=== PATIENT | male | born 1935 | race Caucasian/White ===

== ENCOUNTER 2021-01-14 14:04 | Inpatient (IN) | payer MEDICARE, OTHER ==
[2021-01-14 14:57] LABS: #Lymphocytes 0.8 thou/uL (1.20-3.40); #Monocytes 0.9 thou/uL (0.11-0.59); #Neutrophils 8.8 thou/uL (1.40-6.50); %Basophils 0.1 % (0.0-1.0); %Eosinophils 0.4 % (0.0-10.0); %Lymphocytes 7.1 % (21.0-51.0); %Monocytes 8.3 % (0.0-10.0); %Neutrophils 84.1 % (42.0-75.0); Hemoglobin 14.6 g/dL (14.0-18.0); Mean Corpuscular HGB CONC 31.4 g/dL (32.0-36.0); Mean Corpuscular Hemoglobin 31.5 pg (27.0-31.0); Mean Platelet Volume 8.4 fL (7.4-10.4); Platelet Count 256 thou/uL (130-400); RBC Distribution Width 16.3 % (11.5-14.5); Red Blood Cell (RBC) Count 4.63 mill/uL (4.70-6.10); White Blood Cell (WBC) Count 10.5 thou/uL (4.8-10.8)
[2021-01-14 15:11] LABS: ALT (SGPT) 10 U/L (8-55); AST (SGOT) 21 U/L (5-34); Albumin 3.4 g/dL (3.4-4.8); Alkaline Phosphatase 109 U/L (40-110); Anion Gap 11 mmol/L (10-20); BUN (Urea Nitrogen) 29 mg/dL (8.4-25.7); Bilirubin, Total 1.9 mg/dL (0.2-1.2); CK (CPK) 17 U/L (30-200); Calc. Creatinine Clearance 0 mL/min (70-130); Calcium 9.6 mg/dL (7.8-10.44); Carbon Dioxide 26 mmol/L (23-31); Chloride 102 mmol/L (98-107); Glucose 126 mg/dL (83-110); Lipase 15 U/L (8-78); Potassium 4.3 mmol/L (3.5-5.1); Protein, Total 6.4 g/dL (5.8-8.1); Sodium 135 mmol/L (136-145)
[2021-01-14] MEDS ORDERED: Furosemide 40 MG/4 ML VIAL ONE (17:02)
[2021-01-14] MEDS ORDERED: cefTRIAXone\\ROCEPHIN 1 GM VIAL ONE (17:02)
[2021-01-14] MEDS ORDERED: HYDROcodone/Acetaminophen 5/325 mg Tablet PO PRN (17:25)
[2021-01-14] MEDS ORDERED: Senokot S 8.6-50 MG TAB PO PRN (17:25)
[2021-01-14] MEDS ORDERED: Acetaminophen 325 MG TAB PO PRN (17:25)
[2021-01-14] MEDS ORDERED: Zolpidem Tartrate 5 MG TAB PO PRN (17:25)
[2021-01-14] MEDS ORDERED: Loperamide HCl 2 MG CAP PO PRN (17:25)
[2021-01-14] MEDS ORDERED: Calcium Carbonate 500 MG ChewTAB PO PRN (17:25)
[2021-01-14] MEDS ORDERED: Ondansetron ODT 4 MG TAB PO PRN (17:25)
[2021-01-14] MEDS ORDERED: Ondansetron PF 4 MG/2 ML Vial IVP PRN (17:25)
[2021-01-14] MEDS ORDERED: Bisacodyl 10 MG SUPP PR PRN (17:25)
[2021-01-14] MEDS ORDERED: Guaifenesin DM 100-10/5 ML UDCUP PO PRN (17:25)
[2021-01-14] MEDS: Budesonide 0.5 MG/2 ML NEB NEB SCH (19:45)
[2021-01-14] MEDS ORDERED: Budesonide 0.5 MG/2 ML NEB ONE (19:51)
[2021-01-14] MEDS: guaiFENesin ER 600 MG TAB PO SCH (21:31)
[2021-01-14] MEDS: Simvastatin 10 MG TAB PO SCH (21:31)
[2021-01-14] MEDS: Apixaban 2.5 MG TAB PO SCH (21:31)
[2021-01-14] MEDS ORDERED: Famotidine 20 MG TAB ONE (21:32)
[2021-01-14] MEDS ORDERED: methylPREDNISolone Sod Succ 40 MG VIAL ONE (22:20)
[2021-01-14] MEDS: Famotidine 20 MG TAB PO SCH (22:35)
[2021-01-14] MEDS: methylPREDNISolone Sod Succ 40 MG VIAL IVP SCH (22:35)
[2021-01-15 04:52] LABS: Bacteria/HPF None Seen HPF (None Seen); Bilirubin Negative (Negative); Blood, Urine Trace (Negative); Clarity Clear (Clear); Glucose, Urine (Dipstick) Normal (Negative); Ketone, Urine Negative (Negative); Leukocyte Negative Leu/uL (Negative); Nitrite Negative (Negative); Protein, Urine (Dipstick) Negative (Neg-Trace); RBC/HPF 0-3 HPF (0-3); Squamous Epithelial None Seen HPF (0-3); Urobilinogen Normal mg/dL (Less than 2); WBC/HPF 0-3 HPF (0-3)
[2021-01-15 05:01] LABS: #Basophils 0.1 thou/uL (0.0-0.2); #Lymphocytes 0.3 thou/uL (1.20-3.40); #Monocytes 0.3 thou/uL (0.11-0.59); #Neutrophils 9.3 thou/uL (1.40-6.50); %Basophils 0.8 % (0.0-1.0); %Eosinophils 0.3 % (0.0-10.0); %Lymphocytes 2.5 % (21.0-51.0); %Monocytes 2.8 % (0.0-10.0); %Neutrophils 93.6 % (42.0-75.0); Hemoglobin 13.1 g/dL (14.0-18.0); Mean Corpuscular Hemoglobin 30.9 pg (27.0-31.0); Mean Corpuscular Volume 99.6 fL (78.0-98.0); Mean Platelet Volume 8.8 fL (7.4-10.4); Platelet Count 238 thou/uL (130-400); RBC Distribution Width 16.2 % (11.5-14.5); Red Blood Cell (RBC) Count 4.24 mill/uL (4.70-6.10)
[2021-01-15 05:21] LABS: ALT (SGPT) 10 U/L (8-55); AST (SGOT) 18 U/L (5-34); Alkaline Phosphatase 94 U/L (40-110); Anion Gap 15 mmol/L (10-20); BUN (Urea Nitrogen) 27 mg/dL (8.4-25.7); Bilirubin, Total 1.3 mg/dL (0.2-1.2); Calc. Creatinine Clearance 0 mL/min (70-130); Calcium 9.4 mg/dL (7.8-10.44); Carbon Dioxide 20 mmol/L (23-31); Chloride 104 mmol/L (98-107); Globulin 2.9 g/dL (2.4-3.5); Glucose 114 mg/dL (83-110); Magnesium 1.9 mg/dL (1.6-2.6); Potassium 3.9 mmol/L (3.5-5.1); Protein, Total 5.9 g/dL (5.8-8.1); Sodium 135 mmol/L (136-145); Uric Acid 6.1 mg/dL (3.5-7.2)
[2021-01-15] MEDS ORDERED: methylPREDNISolone Sod Succ 40 MG VIAL ONE (05:27)
[2021-01-15] MEDS ORDERED: Furosemide 40 MG/4 ML VIAL ONE (05:27)
[2021-01-15] MEDS: Furosemide 40 MG/4 ML VIAL SLOW IVP SCH ×2 (05:36→16:35)
[2021-01-15] MEDS: methylPREDNISolone Sod Succ 40 MG VIAL IVP SCH ×3 (05:36→21:11)
[2021-01-15] MEDS ORDERED: Ipratropium Bromide 2.5 ml Neb ONE (08:15)
[2021-01-15] MEDS ORDERED: Budesonide 0.5 MG/2 ML NEB ONE (08:15)
[2021-01-15] MEDS ORDERED: Aspirin Chewable 81 MG TAB ONE (08:51)
[2021-01-15] MEDS ORDERED: Amiodarone 200 MG TAB PO SCH (09:00)
[2021-01-15] MEDS ORDERED: Folic Acid 1 MG TAB ONE (09:35)
[2021-01-15] MEDS: Potassium Chloride 10 MEQ TAB PO SCH ×2 (09:38→16:36)
[2021-01-15] MEDS: Aspirin Chewable 81 MG TAB PO SCH (09:39)
[2021-01-15] MEDS: Apixaban 2.5 MG TAB PO SCH ×2 (09:39→21:10)
[2021-01-15] MEDS: Cyanocobalamin (Vitamin B-12) 1,000 MCG TAB PO SCH (09:40)
[2021-01-15] MEDS: Folic Acid 1 MG TAB PO SCH (09:40)
[2021-01-15] MEDS: guaiFENesin ER 600 MG TAB PO SCH ×2 (09:40→21:10)
[2021-01-15] MEDS: Budesonide 0.5 MG/2 ML NEB NEB SCH ×2 (11:06→19:07)
[2021-01-15] MEDS ORDERED: PROPOFOL 200 MG/20 ML VIAL ONE (12:39)
[2021-01-15] MEDS ORDERED: Lidocaine 1% PF 5 ML VIAL ONE (12:39)
[2021-01-15] MEDS: cefTRIAXone\\ROCEPHIN 1 GM in Sodium Chloride 0.9% 100 ML IVPB SCH (16:36)
[2021-01-15] MEDS: Simvastatin 10 MG TAB PO SCH (21:10)
[2021-01-15] MEDS: Famotidine 20 MG TAB PO SCH (21:10)
[2021-01-16] MEDS: methylPREDNISolone Sod Succ 40 MG VIAL IVP SCH (06:01)
[2021-01-16] MEDS: Furosemide 40 MG/4 ML VIAL SLOW IVP SCH ×2 (06:04→15:40)
[2021-01-16] MEDS: Budesonide 0.5 MG/2 ML NEB NEB SCH ×2 (07:44→18:59)
[2021-01-16 08:45] LABS: Troponin I Less than 0.010 ng/mL (< 0.028)
[2021-01-16] MEDS: Apixaban 2.5 MG TAB PO SCH ×2 (09:16→20:41)
[2021-01-16] MEDS: Cyanocobalamin (Vitamin B-12) 1,000 MCG TAB PO SCH (09:16)
[2021-01-16] MEDS: Potassium Chloride 10 MEQ TAB PO SCH ×2 (09:16→18:11)
[2021-01-16] MEDS: Amiodarone 200 MG TAB PO SCH ×2 (09:16→20:41)
[2021-01-16] MEDS: Folic Acid 1 MG TAB PO SCH (09:17)
[2021-01-16] MEDS: Aspirin Chewable 81 MG TAB PO SCH (09:17)
[2021-01-16] MEDS: guaiFENesin ER 600 MG TAB PO SCH ×2 (09:17→20:41)
[2021-01-16] MEDS: cefTRIAXone\\ROCEPHIN 1 GM in Sodium Chloride 0.9% 100 ML IVPB SCH (18:11)
[2021-01-16] MEDS: Simvastatin 10 MG TAB PO SCH (20:41)
[2021-01-16] MEDS: Famotidine 20 MG TAB PO SCH (20:41)
[2021-01-17 05:46] LABS: Anion Gap 14 mmol/L (10-20); BUN (Urea Nitrogen) 25 mg/dL (8.4-25.7); Calc. Creatinine Clearance 48 mL/min (70-130); Calcium 9.5 mg/dL (7.8-10.44); Carbon Dioxide 28 mmol/L (23-31); Chloride 101 mmol/L (98-107); Glucose 113 mg/dL (83-110); Potassium 3.7 mmol/L (3.5-5.1); Sodium 139 mmol/L (136-145)
[2021-01-17] MEDS: Furosemide 40 MG/4 ML VIAL SLOW IVP SCH (05:48)
[2021-01-17] MEDS: Budesonide 0.5 MG/2 ML NEB NEB SCH ×2 (07:28→18:36)
[2021-01-17] MEDS: Apixaban 2.5 MG TAB PO SCH ×2 (09:41→20:17)
[2021-01-17] MEDS: Amiodarone 200 MG TAB PO SCH ×2 (09:41→20:17)
[2021-01-17] MEDS: Aspirin Chewable 81 MG TAB PO SCH (09:41)
[2021-01-17] MEDS: Potassium Chloride 10 MEQ TAB PO SCH ×2 (09:41→16:46)
[2021-01-17] MEDS: Folic Acid 1 MG TAB PO SCH (09:41)
[2021-01-17] MEDS: Cyanocobalamin (Vitamin B-12) 1,000 MCG TAB PO SCH (09:41)
[2021-01-17] MEDS: guaiFENesin ER 600 MG TAB PO SCH ×2 (09:41→20:18)
[2021-01-17] MEDS: cefTRIAXone\\ROCEPHIN 1 GM in Sodium Chloride 0.9% 100 ML IVPB SCH (16:45)
[2021-01-17] MEDS: Famotidine 20 MG TAB PO SCH (20:17)
[2021-01-17] MEDS: Simvastatin 10 MG TAB PO SCH (20:18)
[2021-01-18 04:24] LABS: #Eosinphils 0.3 thou/uL (0.0-0.7); #Lymphocytes 0.5 thou/uL (1.20-3.40); #Monocytes 0.4 thou/uL (0.11-0.59); %Basophils 0.2 % (0.0-1.0); %Eosinophils 2.8 % (0.0-10.0); %Monocytes 4.1 % (0.0-10.0); %Neutrophils 87.8 % (42.0-75.0); Hemoglobin 13.6 g/dL (14.0-18.0); Mean Corpuscular HGB CONC 32.7 g/dL (32.0-36.0); Mean Corpuscular Hemoglobin 32.7 pg (27.0-31.0); Mean Platelet Volume 8.4 fL (7.4-10.4); Platelet Count 178 thou/uL (130-400); RBC Distribution Width 16.2 % (11.5-14.5); Red Blood Cell (RBC) Count 4.17 mill/uL (4.70-6.10); White Blood Cell (WBC) Count 9.1 thou/uL (4.8-10.8)
[2021-01-18 04:48] LABS: Anion Gap 11 mmol/L (10-20); BUN (Urea Nitrogen) 25 mg/dL (8.4-25.7); Calc. Creatinine Clearance 51 mL/min (70-130); Calcium 8.9 mg/dL (7.8-10.44); Carbon Dioxide 28 mmol/L (23-31); Chloride 102 mmol/L (98-107); Glucose 92 mg/dL (83-110); Magnesium 1.8 mg/dL (1.6-2.6); Potassium 3.4 mmol/L (3.5-5.1); Sodium 138 mmol/L (136-145)
[2021-01-18] MEDS: Budesonide 0.5 MG/2 ML NEB NEB SCH ×2 (07:23→19:02)
[2021-01-18] MEDS ORDERED: Cefdinir 300 MG CAP PO SCH (09:00)
[2021-01-18] MEDS ORDERED: Furosemide 40 MG/4 ML VIAL SLOW IVP SCH ×2 (09:00→11:45)
[2021-01-18] MEDS: Amiodarone 200 MG TAB PO SCH ×2 (09:36→20:23)
[2021-01-18] MEDS: Apixaban 2.5 MG TAB PO SCH ×2 (09:36→20:23)
[2021-01-18] MEDS: guaiFENesin ER 600 MG TAB PO SCH ×2 (09:37→20:23)
[2021-01-18] MEDS: Multivit, Therapeutic 1 TAB PO SCH (09:37)
[2021-01-18] MEDS: Aspirin Chewable 81 MG TAB PO SCH (09:37)
[2021-01-18] MEDS: Folic Acid 1 MG TAB PO SCH (09:37)
[2021-01-18] MEDS: Cyanocobalamin (Vitamin B-12) 1,000 MCG TAB PO SCH (09:37)
[2021-01-18] MEDS ORDERED: Potassium Chloride 20 MEQ TAB PO SCH (12:00)
[2021-01-18] MEDS: Potassium Chloride 10 MEQ TAB PO SCH ×2 (12:27→16:28)
[2021-01-18] MEDS ORDERED: PHOS-NAK 1 PKT PACK PO SCH (13:30)
[2021-01-18] MEDS: K-Phos Neutral 250 MG TAB PO SCH (16:28)
[2021-01-18] MEDS: Famotidine 20 MG TAB PO SCH (20:23)
[2021-01-18] MEDS: Simvastatin 10 MG TAB PO SCH (20:24)
[2021-01-19 05:14] LABS: Anion Gap 11 mmol/L (10-20); BUN (Urea Nitrogen) 25 mg/dL (8.4-25.7); Calc. Creatinine Clearance 57 mL/min (70-130); Calcium 8.8 mg/dL (7.8-10.44); Carbon Dioxide 29 mmol/L (23-31); Chloride 102 mmol/L (98-107); Glucose 89 mg/dL (83-110); Magnesium 1.7 mg/dL (1.6-2.6); Potassium 3.9 mmol/L (3.5-5.1); Sodium 138 mmol/L (136-145)
[2021-01-19 05:31] LABS: Phosphorus 1.7 mg/dL (2.3-4.7)
[2021-01-19] MEDS ORDERED: Electrolyte Replacement Protocol 1 EACH FS PRN (06:44)
[2021-01-19] MEDS ORDERED: Potassium Chloride 20 MEQ TAB PO SCH (06:45)
[2021-01-19] MEDS: Budesonide 0.5 MG/2 ML NEB NEB SCH ×2 (06:58→18:51)
[2021-01-19] MEDS ORDERED: Magnesium Sulfate 3 GM in Sodium Chloride 0.9% 100 ML IVPB SCH (07:30)
[2021-01-19] MEDS ORDERED: Magnesium Sulfate 4 GM in Sodium Chloride 0.9% 250 ML 250 ML IVPB SCH (08:00)
[2021-01-19] MEDS: PHOS-NAK 1 PKT PACK PO SCH ×2 (09:30→12:00)
[2021-01-19] MEDS: K-Phos Neutral 250 MG TAB PO SCH ×3 (09:32→16:45)
[2021-01-19] MEDS: Apixaban 2.5 MG TAB PO SCH ×2 (09:33→21:56)
[2021-01-19] MEDS: Aspirin Chewable 81 MG TAB PO SCH (09:33)
[2021-01-19] MEDS: Potassium Chloride 10 MEQ TAB PO SCH ×2 (09:33→16:45)
[2021-01-19] MEDS: Cyanocobalamin (Vitamin B-12) 1,000 MCG TAB PO SCH (09:33)
[2021-01-19] MEDS: Amiodarone 200 MG TAB PO SCH ×2 (09:33→21:56)
[2021-01-19] MEDS: Multivit, Therapeutic 1 TAB PO SCH (09:34)
[2021-01-19] MEDS: guaiFENesin ER 600 MG TAB PO SCH ×2 (09:34→21:57)
[2021-01-19] MEDS: Folic Acid 1 MG TAB PO SCH (09:34)
[2021-01-19] MEDS: Furosemide 40 MG/4 ML VIAL SLOW IVP SCH (11:59)
[2021-01-19] MEDS ORDERED: Electrolyte Replacement Protocol FS PRN (19:00)
[2021-01-19] MEDS ORDERED: Electrolyte Replacement Protocol 1 EACH FS SCH (19:00)
[2021-01-19] MEDS: Simvastatin 10 MG TAB PO SCH (21:56)
[2021-01-19] MEDS: Famotidine 20 MG TAB PO SCH (21:56)
[2021-01-19] MEDS: Midodrine HCl 5 MG TAB PO SCH (21:57)
[2021-01-20 06:34] LABS: Anion Gap 10 mmol/L (10-20); BUN (Urea Nitrogen) 22 mg/dL (8.4-25.7); Calc. Creatinine Clearance 58 mL/min (70-130); Calcium 8.6 mg/dL (7.8-10.44); Carbon Dioxide 32 mmol/L (23-31); Chloride 104 mmol/L (98-107); Glucose 103 mg/dL (83-110); Magnesium 2.3 mg/dL (1.6-2.6); Phosphorus 2.6 mg/dL (2.3-4.7); Potassium 3.6 mmol/L (3.5-5.1); Sodium 142 mmol/L (136-145)
[2021-01-20 06:42] LABS: #Eosinphils 0.6 thou/uL (0.0-0.7); #Lymphocytes 0.5 thou/uL (1.20-3.40); #Monocytes 0.4 thou/uL (0.11-0.59); #Neutrophils 8.7 thou/uL (1.40-6.50); %Basophils 0.4 % (0.0-1.0); %Eosinophils 6.1 % (0.0-10.0); %Lymphocytes 4.9 % (21.0-51.0); %Neutrophils 84.6 % (42.0-75.0); Hemoglobin 14.1 g/dL (14.0-18.0); Mean Corpuscular HGB CONC 32.1 g/dL (32.0-36.0); Mean Corpuscular Hemoglobin 32.4 pg (27.0-31.0); Platelet Count 160 thou/uL (130-400); Red Blood Cell (RBC) Count 4.35 mill/uL (4.70-6.10); White Blood Cell (WBC) Count 10.3 thou/uL (4.8-10.8)
[2021-01-20] MEDS: Budesonide 0.5 MG/2 ML NEB NEB SCH ×2 (07:08→19:27)
[2021-01-20] MEDS ORDERED: Docusate 100 MG CAP PO SCH (09:00)
[2021-01-20] MEDS: Apixaban 2.5 MG TAB PO SCH ×2 (09:31→22:24)
[2021-01-20] MEDS: K-Phos Neutral 250 MG TAB PO SCH ×3 (09:31→18:12)
[2021-01-20] MEDS: guaiFENesin ER 600 MG TAB PO SCH ×2 (09:31→22:23)
[2021-01-20] MEDS: Aspirin Chewable 81 MG TAB PO SCH (09:31)
[2021-01-20] MEDS: Amiodarone 200 MG TAB PO SCH ×2 (09:31→22:23)
[2021-01-20] MEDS: Potassium Chloride 10 MEQ TAB PO SCH ×2 (09:32→18:12)
[2021-01-20] MEDS: Folic Acid 1 MG TAB PO SCH (09:32)
[2021-01-20] MEDS: Cyanocobalamin (Vitamin B-12) 1,000 MCG TAB PO SCH (09:32)
[2021-01-20] MEDS: Midodrine HCl 5 MG TAB PO SCH ×2 (09:32→22:23)
[2021-01-20] MEDS: Multivit, Therapeutic 1 TAB PO SCH (09:32)
[2021-01-20] MEDS: Furosemide 40 MG/4 ML VIAL SLOW IVP SCH (10:06)
[2021-01-20] MEDS: Famotidine 20 MG TAB PO SCH (22:23)
[2021-01-20] MEDS: Simvastatin 10 MG TAB PO SCH (22:24)
[2021-01-21 05:06] LABS: Anion Gap 10 mmol/L (10-20); BUN (Urea Nitrogen) 19 mg/dL (8.4-25.7); Calc. Creatinine Clearance 58 mL/min (70-130); Calcium 8.5 mg/dL (7.8-10.44); Carbon Dioxide 31 mmol/L (23-31); Chloride 106 mmol/L (98-107); Glucose 95 mg/dL (83-110); Potassium 3.7 mmol/L (3.5-5.1); Sodium 143 mmol/L (136-145)
[2021-01-21] MEDS: Budesonide 0.5 MG/2 ML NEB NEB SCH (06:55)
[2021-01-21] MEDS: Aspirin Chewable 81 MG TAB PO SCH (08:36)
[2021-01-21] MEDS: Folic Acid 1 MG TAB PO SCH (08:36)
[2021-01-21] MEDS: Potassium Chloride 10 MEQ TAB PO SCH (08:36)
[2021-01-21] MEDS: guaiFENesin ER 600 MG TAB PO SCH (08:36)
[2021-01-21] MEDS: Amiodarone 200 MG TAB PO SCH (08:36)
[2021-01-21] MEDS: Midodrine HCl 5 MG TAB PO SCH (08:36)
[2021-01-21] MEDS: Apixaban 2.5 MG TAB PO SCH (08:36)
[2021-01-21] MEDS: Multivit, Therapeutic 1 TAB PO SCH (08:37)
[2021-01-21] MEDS: K-Phos Neutral 250 MG TAB PO SCH ×2 (08:37→13:11)
[2021-01-21] MEDS: Cyanocobalamin (Vitamin B-12) 1,000 MCG TAB PO SCH (08:37)
[2021-01-21] MEDS: Furosemide 40 MG/4 ML VIAL SLOW IVP SCH (08:45)
[2021-01-21] MEDS ORDERED: Furosemide 20 MG TAB PO SCH (09:00)
[2021-01-21 12:00] VITALS: BP 100/61; TEMP 97.5
[2021-01-21 12:55] VITALS: BMI 20.3
== END 2021-01-21 15:30 | DRG 291 ==
LOC: ERS 14:04 → ERHOLD 17:01 → 2NO 01-15 14:39
PROVIDERS: ADMIT Internal Medicine; ATTEND Internal Medicine
PROC: B24BZZ4 Ultrasonography of Heart with Aorta, Transesophageal (ICD-10-PCS; principal; 2021-01-15)
PROC: 5A2204Z Restoration of Cardiac Rhythm, Single (ICD-10-PCS; 2021-01-15)
DX: I50.43 Acute on chronic combined systolic (congestive) and diastolic (congestive) heart failure (principal); G93.41 Metabolic encephalopathy; I48.20 Chronic atrial fibrillation, unspecified; J84.9 Interstitial pulmonary disease, unspecified; I42.0 Dilated cardiomyopathy; I48.92 Unspecified atrial flutter; E87.1 Hypo-osmolality and hyponatremia; E44.0 Moderate protein-calorie malnutrition; E78.5 Hyperlipidemia, unspecified; F03.90 Unspecified dementia, unspecified severity, without behavioral disturbance, psychotic disturbance, mood disturbance, and anxiety; R62.7 Adult failure to thrive; N18.31 Chronic kidney disease, stage 3a; D75.89 Other specified diseases of blood and blood-forming organs; F41.9 Anxiety disorder, unspecified; F32.9 Major depressive disorder, single episode, unspecified; I08.1 Rheumatic disorders of both mitral and tricuspid valves; I25.10 Atherosclerotic heart disease of native coronary artery without angina pectoris; E87.6 Hypokalemia; E83.39 Other disorders of phosphorus metabolism; E83.42 Hypomagnesemia; I95.1 Orthostatic hypotension; R19.7 Diarrhea, unspecified; Z85.46 Personal history of malignant neoplasm of prostate; Z85.828 Personal history of other malignant neoplasm of skin; Z87.891 Personal history of nicotine dependence; Z79.01 Long term (current) use of anticoagulants; Z79.899 Other long term (current) drug therapy; Z68.20 Body mass index [BMI] 20.0-20.9, adult; Z87.11 Personal history of peptic ulcer disease; Z86.19 Personal history of other infectious and parasitic diseases
CPT/HCPCS: 36415; 71045; 80048; 80053; 81003; 81015; 82550; 83630; 83690; 83735; 83880; 84100; 84443; 84484; 84550; 85025; 87040; 87086; 87149; 87324; 87449; 92960; 93005; 93010; 93306; 93312; 94640; 96365; 96375; 97139; J0696; J1940; J2704; J2920; J3475; J3490; J7050; J7620; J7626